=== PATIENT | male | born 1985 | race Caucasian/White ===

== ENCOUNTER 2024-05-05 10:31 | Emergency (ER) | payer SELFPAY ==
[2024-05-05 10:59] VITALS: PULSE 73
[2024-05-05] MEDS: Bacitracin Oint 1 GM U/D Packet TOP ONE (11:09)
[2024-05-05 14:17] VITALS: BP 125/76
[2024-05-05] MEDS: Bacitracin/Neomycin/Polymyxin B Oint 0.9 GM U/D Packet TOP ONE (14:39)
== END 2024-05-05 11:29 | disposition home or self-care (01) ==
LOC: LB.ED 10:31
DX: S01.81XA Laceration without foreign body of other part of head, initial encounter (principal); W22.8XXA Striking against or struck by other objects, initial encounter
CPT/HCPCS: 12006; 12013; 70450; 99283